=== PATIENT | male | born 1970 | race Two or more races ===

== ENCOUNTER 2018-03-15 02:05 | Emergency (ER) | payer OTHER ==
[~2018-03-15] VITALS: Ht 177.8 cm; Wt 63.5 kg
[2018-03-15 02:19] VITALS: Ht 177.8 cm; Wt 63.5 kg
[2018-03-15 04:09] LABS: AMPHETAMINE QUAL UR NONE DETECTED (See below)
[2018-03-15 06:34] VITALS: BP 121/79
== END 2018-03-15 06:34 | disposition home or self-care (01) ==
LOC: ED 02:05
PROVIDERS: Emergency Medicine
DX: S39.92XA Unspecified injury of lower back, initial encounter (principal); R41.82 Altered mental status, unspecified; E11.9 Type 2 diabetes mellitus without complications; F31.9 Bipolar disorder, unspecified; Y04.2XXA Assault by strike against or bumped into by another person, initial encounter; Y93.89 Activity, other specified; Y92.89 Other specified places as the place of occurrence of the external cause; Y99.8 Other external cause status

== ENCOUNTER 2018-06-16 20:29 | Emergency (ER) | payer OTHER ==
[~2018-06-16] VITALS: Ht 177.8 cm; Wt 66.2 kg
[2018-06-16 20:46] VITALS: BP 130/95; Ht 177.8 cm; Wt 66.2 kg
== END 2018-06-16 22:03 | disposition left against medical advice (07) ==
LOC: ED 20:29
DX: Z53.21 Procedure and treatment not carried out due to patient leaving prior to being seen by health care provider (principal)

== ENCOUNTER → 2018-06-21 | Emergency (ER) | payer OTHER ==
[~2018-06-21] VITALS: Ht 167.6 cm; Wt 74.4 kg
[2018-06-21 22:35] VITALS: Ht 167.6 cm; Wt 74.4 kg
[2018-06-21 23:14] LABS: PLATELET COUNT 198 x10^3mcL (130-400)
[2018-06-21 23:19] LABS: RED CELL DISTRIBUTION WIDTH 16.3 % (11.5-14.5)
[2018-06-21 23:29] LABS: CALCIUM 9.4 mg/dL (8.5-10.1); CARBON DIOXIDE 25.5 mmol/L (21-32); CHLORIDE SERUM 99 mmol/L (98-107); CREATININE SERUM 0.9 mg/dL (0.7-1.3); GFR1 > 60 mL/min; GLUCOSE SERUM 179 mg/dL (74-106); POTASSIUM SERUM 3.8 mmol/L (3.5-5.1); SODIUM SERUM 139 mmol/L (136-145)
[2018-06-21 23:42] LABS: ALBUMIN 3.9 g/dL (3.4-5.0); ALKALINE PHOSPHATASE 47 U/L (46-116); ALT/SGPT 28 U/L (16-63); AST/SGOT 24 U/L (15-37); BILIRUBIN TOTAL 0.3 mg/dL (0.20-1.00); T4(THYROXINE) 8.8 ug/dL (4.7-13.3); TOTAL PROTEIN, SERUM 7.2 g/dL (6.4-8.2)
[2018-06-22 00:13] LABS: AMPHETAMINE QUAL UR NONE DETECTED (See below)
[2018-06-22 07:34] VITALS: BP 108/75
== END ==
LOC: ED 22:32
PROVIDERS: Emergency Medicine
DX: F10.129 Alcohol abuse with intoxication, unspecified (principal); M25.562 Pain in left knee; E11.9 Type 2 diabetes mellitus without complications; F31.9 Bipolar disorder, unspecified
CPT/HCPCS: 36415; G0480; Q0092

== ENCOUNTER 2018-07-02 06:43 | Emergency (ER) | payer OTHER ==
[~2018-07-02] VITALS: Ht 177.8 cm; Wt 64.0 kg
[2018-07-02 06:50] VITALS: Ht 177.8 cm; Wt 64.0 kg
[2018-07-02 07:31] LABS: microscopic required? NO
[2018-07-02 07:39] LABS: BASOPHIL % 1.4 % (0-2); PLATELET COUNT 299 x10^3mcL (130-400)
[2018-07-02 07:41] LABS: RED CELL DISTRIBUTION WIDTH 17.4 % (11.5-14.5)
[2018-07-02 07:46] LABS: CALCIUM 8.7 mg/dL (8.5-10.1); CARBON DIOXIDE 27.8 mmol/L (21-32); CHLORIDE SERUM 100 mmol/L (98-107); CREATININE SERUM 1.1 mg/dL (0.7-1.3); GFR1 > 60 mL/min; GLUCOSE SERUM 207 mg/dL (74-106); POTASSIUM SERUM 3.8 mmol/L (3.5-5.1); SODIUM SERUM 140 mmol/L (136-145)
[2018-07-02 08:00] LABS: ALBUMIN 4.2 g/dL (3.4-5.0); ALKALINE PHOSPHATASE 68 U/L (46-116); ALT/SGPT 29 U/L (16-63); AST/SGOT 25 U/L (15-37); BILIRUBIN TOTAL 0.36 mg/dL (0.20-1.00); LIPASE 338 IU/L (73-393)
[2018-07-02 08:08] LABS: TOTAL PROTEIN, SERUM 8.4 g/dL (6.4-8.2)
[2018-07-02 08:26] LABS: UA SPECIFIC GRAVITY <=1.005 (1.005-1.035); urine erythrocyte NEGATIVE (NEGATIVE)
[2018-07-02 10:25] VITALS: BP 109/63
== END 2018-07-02 10:25 | disposition home or self-care (01) ==
LOC: ED 06:43
PROVIDERS: Emergency Medicine
DX: K29.20 Alcoholic gastritis without bleeding (principal); I10 Essential (primary) hypertension; E11.9 Type 2 diabetes mellitus without complications; F31.9 Bipolar disorder, unspecified; Z91.018 Allergy to other foods
CPT/HCPCS: G0480; J2405; J3490